=== PATIENT | female | born 1975 | race Two or more races ===

== ENCOUNTER 2022-07-27 08:52 | Inpatient (IN) | payer OTHER ==
[~2022-07-27] VITALS: Ht 154.9 cm; Wt 68.0 kg
[~2022-07-27 08:52] MED LIST: LEXAPRO20 MG
[2022-07-27] MEDS ORDERED: LONITEN2.5 MG PO (09:17)
--- NOTE | 2022-07-27 09:20 | NUR ---
PACIENTE ALERTA Y ORIENTADA X3, REFIERE DOLOR DE ESPALDA BAJA EN EL LADO DERECHO DESDE EL VIERNES. PTE TAMBIEN REFIERE TENER CONGESTION. SE MONITOREAN VS Y SE UBICA EN JORGE DE ESPERA
--- NOTE | 2022-07-27 11:08 | NUR ---
FEMINA ALERTA Y ORIENTADA X3 EVALUADA POR LA DRA GRUBBS QUIEN [place] MEDICO. SE EDUCA A PTE SOBRE PROCEDIMIENTO. SE COLECTAN MUESTRAS DE ETHAN BAJO MEDIDAS ASEPTICAS Y SE ADMINISTRAN MEDICAMENTOS. PENDIENTE CT.
[2022-07-31] MEDS ORDERED: OMEPRAZOLE40 MG (08:05)
== END 2022-08-13 07:37 | disposition home or self-care (01) | DRG 983 ==
LOC: ER 08:52 → SURG 19:44 → SURH 08-07 10:53
PROVIDERS: ADMIT Internal Medicine; ATTEND Internal Medicine
PROC: BW21ZZZ Computerized Tomography (CT Scan) of Abdomen and Pelvis (ICD-10-PCS; 2022-07-27)
PROC: BW21YZZ Computerized Tomography (CT Scan) of Abdomen and Pelvis using Other Contrast (ICD-10-PCS; 2022-07-31)
PROC: BR3CZZZ Magnetic Resonance Imaging (MRI) of Pelvis (ICD-10-PCS; 2022-08-01)
PROC: 0UB Female Reproductive System, Excision (ICD-10-PCS; principal; 2022-08-07)
DX: C78.6 Secondary malignant neoplasm of retroperitoneum and peritoneum (principal); R59.0 Localized enlarged lymph nodes; N73.8 Other specified female pelvic inflammatory diseases; K80.50 Calculus of bile duct without cholangitis or cholecystitis without obstruction; Z20.822 Contact with and (suspected) exposure to COVID-19
CPT/HCPCS: 72198